=== PATIENT | male | born 1975 | race Two or more races ===

== ENCOUNTER 2024-05-10 08:16 | Emergency (ER) | payer MEDICAID, SELFPAY ==
[2024-05-10 08:17] VITALS: BMI 34.3
[2024-05-10 08:54] VITALS: BP 110/72; PULSE 82; RESP 18; TEMP 36.8; O2SAT 98
--- NOTE | 2024-05-10 09:06 | EKG_ITS ---
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1975 Requested By: Jaren Pelaez (VANESSA) Order Number: [id number] Reading MD: Jaren Pelaez (VANESSA) Measurements Intervals [place] Rate: 81 P: 26 MS: 196 QRS: 10 QRSD: 100 T: 32 QT: 381 QTc: 443 Interpretive Statements SINUS RHYTHM POSSIBLE RIGHT ATRIAL ENLARGEMENT [0.25mV P-WAVE] MINIMAL VOLTAGE CRITERIA FOR LVH, CONSIDER NORMAL VARIANT [MEETS CRITERIA IN ONE OF: R(aVL), S(V1), R(V5), R(V5/V6)+S(V1)] POSSIBLE ACUTE PERICARDITIS - EXCLUDE ACUTE CO [MARKED ST ELEVATION W/O NORMALLY INFLECTED T-WAVE] ACUTE CO No previous ECG available for comparison /store/S0/[id number].pdf
--- NOTE | 2024-05-10 09:06 | XR_ITS ---
Examination: PA lateral chest 2 views TECHNIQUE: Upright AP lateral chest 2 views Exam date and time: May 10, 2024 0916 hours INDICATIONS: Chest pain today FINDINGS: Normal heart size. No pneumonia or pulmonary edema. The osseous structures are intact IMPRESSION: No active disease
[2024-05-10 10:26] LABS: Troponin I < 0.002 ng/mL (0.0-0.045)
--- NOTE | 2024-05-10 12:18 | EKG_ITS ---
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
[2024-05-10 12:28] VITALS: BP 123/86; PULSE 82; RESP 16; TEMP 36.5; O2SAT 96
--- NOTE | 2024-05-10 12:28 | PD.EDCHEST ---
ED Chest Pain RME/HPI General Chief Complaint: Chest Pain Stated Complaint: RIGHT UPPER CHEST PAIN WITH BREATHING X 3DAYS Time Seen by Provider: 05/10/24 09:05 Arrival date/time: 05/10/24 08:16 48-year-old male with history of hypertension presents emergency department today stating that he has right-sided chest pain with deep inspiration patient report symptoms ongoing for approximately 1 week intermittently there are no other associated symptoms or aggravating factors no other modifying factors, patient denies taking medication before coming to ER today Limitations: no limitations Related Data Previous Rx's ?Medication ?Instructions ?Recorded ibuprofen 800 mg tablet 800 mg PO TID PRN pain #30 tabs 07/02/22 Allergies Allergy/AdvReac Type Severity Reaction Status Date / Time clindamycin Allergy Intermediate Rash Verified 05/10/24 08:19 Review of Systems Review of Systems Systems Reviewed: All systems reviewed, normal except as documented Constitutional Constitutional: Reports system reviewed and no additional complaints, except as documented, Denies fever(s) and Denies headache(s) Eyes Eyes: Reports system reviewed and no additional complaints, except as documented and Denies blurry vision ENT Ears, Nose, Mouth, and Throat: Reports system reviewed and no additional complaints, except as documented, Denies headache(s), Denies nasal congestion and Denies nasal discharge Cardiovascular Cardiovascular: Reports system reviewed and no additional complaints, except as documented, Reports chest pain and Denies dyspnea Respiratory Respiratory: Reports system reviewed and no additional complaints, except as documented, Denies chest congestion, Denies cough and Denies dyspnea Gastrointestinal Gastrointestinal: Reports system reviewed and no additional complaints, except as documented and Denies abdominal pain Integumentary/Breasts Skin/Breast: Reports system reviewed and no additional complaints, except as documented and Denies rash Neurologic Neurologic: Reports system reviewed and no additional complaints, except as documented, Reports as per HPI and Denies headache(s) Past Medical History Past Medical History NEUROLOGIC: Negative Neurological Disorders CARDIAC: Negative Cardiac Disorders Social History SMOKING STATUS: Former smoker ED Exam General Limitations: Present no limitations General appearance: Present alert and in no apparent distress Head Head exam: Present atraumatic, normocephalic and normal inspection Eye Eye exam: Present normal appearance, PERRL and EOMI; Absent conjunctival injection ENT ENT exam: Present normal exam, normal oropharynx and mucous membranes moist Neck Neck exam: Present normal inspection, full ROM and trachea midline Chest Chest inspection: Present normal inspection and symmetric chest wall rise Respiratory Respiratory exam: Present normal lung sounds bilaterally; Absent respiratory distress, wheezes, stridor or accessory muscle use Cardiovascular Cardiovascular exam: Present regular rate, normal rhythm and normal heart sounds Abdominal Exam Abdominal exam: Present soft and normal bowel sounds; Absent distention, tenderness, guarding, rebound or rigidity Extremities Exam Extremities exam: Present normal inspection and full ROM Back Exam Back exam: Present normal inspection and full ROM Neurological Exam Neurological exam: Present alert, oriented X3 and CN II-XII intact Psychiatric Psychiatric exam: Present normal affect and normal mood Skin Skin exam: Present warm, dry, intact and normal color Course Quality Measures none Orders Category Date Time Status EKG (ED ONLY) *Do not use* NOW Care 05/10/24 09:06 Completed EKG (ED ONLY) *Do not use* NOW Care 05/10/24 12:18 Completed EKG (ED Only) Stat Exams 05/10/24 09:06 Draft EKG (ED Only) Stat Exams 05/10/24 12:18 Draft XR chest 2V Stat Exams 05/10/24 09:06 Completed Troponin I Stat Lab 05/10/24 09:50 Completed Vital Signs Vital signs: Vital Signs Temperature 98.3 F 05/10/24 08:54 Pulse Rate 82 05/10/24 08:54 Respiratory Rate 18 05/10/24 08:54 Blood Pressure 110/72 05/10/24 08:54 Pulse Oximetry (%) 98 05/10/24 08:54 Oxygen Delivery Method Room Air 05/10/24 08:54 O2 saturation 98% room air within normal limits Procedures -ED EKG Interpretation #1: Date of EK05/10/24 Time of EK:13 Rate: 84 Interpretation: Interpreted by me EKG Impression: Normal sinus rhythm, No ectopy, No ischemic changes, Normal QRS, Normal intervals, Normal axis and Non-specific ST-T Chest Pain MDM Narrative MDM Narrative:: 48-year-old male with history of hypertension presents emergency department today stating that he has right-sided chest pain with deep inspiration patient report symptoms ongoing for approximately 1 week intermittently there are no other associated symptoms or aggravating factors no other modifying factors, patient denies taking medication before coming to ER today On exam patient does not appear ill or toxic patient reports no left-sided chest pain no midsternal pain no pain that goes to his back Imaging lab work and EKG obtained There are 2 EKGs performed the first EKG there was quite a bit of artifact on the EKG 1 minute later did not show any acute emergent findings At time of discharge patient reports no chest pain or shortness of breath Troponin is normal chest x-ray is normal EKG reviewed by me Patient discharged home in no distress to follow-up with primary care doctor in the next 24 to 48 hours and for any worsening symptoms to return to the ER immediately Patient data External records reviewed:: [facility] previous records Clinical information provided by:: patient Social determinants that could affect healthcare access:: none Patient has the following chronic illnesses:: See history How is presenting disease/condition affected by chronic disease/condition?: uneffected by Evaluation data The following diagnostics were reviewed and interpreted by me:: lab results, radiology exam(s) and EKG tracing(s) Lab and/or radiology exams considered but not ordered:: Labs, radiology, EKG obtained Interpretation Summary: Reviewed by me Medications / Prescriptions Medications or Prescriptions considered but not ordered:: Given no meds Medication administrations:: Given no meds Consultations Consultation(s) initiated? (list below): No Diagnosis Chest Pain Differential Diagnosis: fracture of rib, pneumothorax, stable angina and other (Gallstones, atypical chest pain, costochondritis) Most likely diagnosis given after review of the tests above:: Chest wall pain Admission Indicated Admission indicated?: not indicated Admission Request Was there a request for admission?: No Disposition Plan Disposition Plan: Discharge Discharge Attestation Discharge Attestation: The patient and all family members were given an opportunity to ask questions and understood the discharge instructions. Discharge instructions specifically effects, indications for sooner follow up or return to the emergency department, and the expected course of current diagnosis. Patient condition: Stable Discharge Plan Plan Patient Disposition: HOME (Self Care) Disposition Comment: Stable Prescriptions/Referrals Prescriptions/Med Rec: No Action ibuprofen 800 mg tablet 800 mg PO TID PRN (Reason: pain) Qty: 30 0RF Referrals: Lindsey Hermosillo PA-C [Primary Care Provider] - 05/12/24 Problem List Clinical Impression: Chest pain, non-cardiac Patient/Caregiver Discharge Instructions Education Materials: ED Chest Pain, Noncardiac Additional Instructions: Please follow up with your primary care doctor in the next 24-48hrs for any worsening symptoms return here immediately Print Language: Bangladeshi Stand Alone Forms: [employer] Award Info., Patient Portal Info Letter PA/FOOTWEAR SALES ASSOCIATE Supervising Physician PA/[employer] SALES ASSOCIATE Supervising Physician: Dr Colin
== END 2024-05-10 12:32 | disposition home or self-care (01) ==
PROVIDERS: Nurse Practitioner Primary Care; Emergency Provider Emergency Medicine; PCP Physician Assistant
DX: R07.89 Other chest pain (principal)
CPT/HCPCS: 36415; 71046; 84484; 93005; 99283